=== PATIENT | male | born 1975 | race Caucasian/White ===

== ENCOUNTER 2021-09-02 18:07 | Emergency (ER) | payer OTHER, SELFPAY ==
[2021-09-02 18:23] VITALS: BP 142/88; PULSE 100; RESP 18; TEMP 36.6; O2SAT 93; BMI 34.4
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
[2021-09-02] MEDS: iohexol 350 mg/mL 100 mL Btl IV (19:07)
[2021-09-02 19:11] LABS: Basophils # 0.1 10^3/uL (0.0-0.1); Basophils % 0.8 %; Eosinophils # 0.1 10^3/uL (0.0-0.8); Eosinophils % 1.7 %; Hematocrit 46.6 % (42.0-52.0); Hemoglobin 15.7 g/dL (11.7-16.6); Lymphocytes # 2.4 10^3/uL (0.8-4.8); Lymphocytes % 30.2 %; Mean Corpuscular HGB Conc 33.7 g/dL (30.0-36.0); Mean Corpuscular Hemoglobin 29.6 pg (28.0-34.0); Mean Corpuscular Volume 87.8 fl (80-94); Mean Platelet Volume 10.7 fL (7.4-10.4); Monocytes # 0.6 10^3/uL (0.2-0.9); Monocytes % 7.2 %; Neutrophils # 4.66 10^3/uL (1.8-7.7); Neutrophils % 59.8 %; Nucleated Red Blood Cells % 0 %; Platelet Count 319 10^3/cmm (130-400); Red Blood Count 5.31 10^6/uL (4.1-5.3); White Blood Count 7.8 10^3/uL (4.0-10.0)
[2021-09-02 19:35] LABS: Alanine Aminotransferase 19 U/L (0-41); Albumin Level 5.1 g/dL (3.5-5.2); Alkaline Phosphatase 60 IU/L (40-130); Anion Gap 17.1 (5-19); Aspartate Amino Transferase 22 U/L (0-40); Blood Urea Nitrogen 16 mg/dL (6-20); Carbon Dioxide 25 mmol/L (22-29); Chloride 99 mmol/L (98-107); Globulin 3.1 g/dL (1.3-4.6); Glucose 102 mg/dL (65-115); Lipase 27 U/L (13-60); Osmolality Calculated 285 mOsm/kg (285-295); Potassium 4.1 mmol/L (3.5-5.1); Sodium 137 mmol/L (136-145); Total Bilirubin 0.4 mg/dL (0.15-1.2); Total Protein 8.2 g/dL (6.6-8.7)
[2021-09-02 19:36] LABS: Troponin(5th) Baseline 9 ng/L (0-15)
[2021-09-02 19:38] VITALS: BP 130/89; PULSE 85; RESP 18; O2SAT 97
[2021-09-02 20:55] LABS: Troponin 5 2HR 7.31 ng/L (0-15)
[2021-09-02 21:09] LABS: Troponin 5 2HR Delta -1.69 ABS# (0-10)
[2021-09-02 21:13] VITALS: BP 140/94; PULSE 86; RESP 18; O2SAT 96
== END 2021-09-02 21:14 | disposition home or self-care (01) ==
PROVIDERS: Emergency Provider Emergency Medicine
DX: R55 Syncope and collapse (principal)
CPT/HCPCS: 71275; 80053; 83690; 84484; 85025; 99283; Q9967

== ENCOUNTER 2021-09-16 11:51 | Outpatient (CLI) | payer OTHER, SELFPAY | END 2021-09-16 11:52 | disposition home or self-care (01) | LOC: SLEEP 11:52 | PROVIDERS: Visit Provider Family Medicine | DX: G47.33 Obstructive sleep apnea (adult) (pediatric) (principal) | CPT/HCPCS: G0399 ==